=== PATIENT | male | born 1975 | race Caucasian/White ===

== ENCOUNTER 2019-06-26 11:10 | Emergency (ER) | payer MEDICAID ==
[~2019-06-26] VITALS: Ht 180.3 cm; Wt 104.0 kg
[2019-06-26 13:50] VITALS: BP 110/67
== END 2019-06-26 13:53 | disposition home or self-care (01) ==
LOC: ED 13:45
DX: R60.0 Localized edema (principal); F17.200 Nicotine dependence, unspecified, uncomplicated
CPT/HCPCS: 36415; 80053; 83880; 85025; 93970; 99284